=== PATIENT | male | born 1965 | race Caucasian/White ===

== ENCOUNTER → 2017-10-18 | Outpatient (CLI) | payer BC ==
[2017-10-18 11:00] LABS: HCT 41.1 % (39.0-53.0); HGB 13.3 gm/dL (13.0-17.5); Hypochromasia Slight; MCH 26.6 pg (25.0-35.0); MCHC 32.2 g/dL (31.0-37.0); MCV 82.5 fL (80.0-100.0); Mean Platelet Volume 7.7; Platelet Count 310 k/uL (150-450); RBC 4.98 m/uL (4.30-5.90); RDW 13.3 % (11.5-15.5)
[2017-10-18 11:14] LABS: ALT 61 U/L (21-72); AST 40 U/L (17-59); Albumin 4.2 g/dL (3.5-5.0); Alkaline Phosphatase 157 U/L (38-126); Anion Gap 13 mmol/L; Blood Urea Nitrogen 13 mg/dL (9-20); Calcium 10.4 mg/dL (8.4-10.2); Carbon Dioxide 28 mmol/L (22-30); Chloride 105 mmol/L (98-107); Glucose 69 mg/dL (74-99); Potassium 5.2 mmol/L (3.5-5.1); Sodium 146 mmol/L (137-145); Total Bilirubin 0.4 mg/dL (0.2-1.3); Total Protein 6.7 g/dL (6.3-8.2)
[2017-10-18 11:29] LABS: T4, Free (Free Thyroxine) 3.69 ng/dL (0.78-2.19)
== END ==
LOC: LABWHC1 10:06
PROVIDERS: ATTEND Internal Medicine Endocrinology, Diabetes & Metabolism
DX: E05.90 Thyrotoxicosis, unspecified without thyrotoxic crisis or storm (principal)
CPT/HCPCS: 36415; 80053; 84439; 84443; 84445; 84480; 85027

== ENCOUNTER → 2017-12-27 | Outpatient (CLI) | payer BC ==
[2017-12-27 12:00] LABS: T4, Free (Free Thyroxine) 2.92 ng/dL (0.78-2.19)
== END | disposition home or self-care (01) ==
LOC: LABWHC1 10:46
PROVIDERS: ATTEND Internal Medicine Endocrinology, Diabetes & Metabolism
DX: E10.65 Type 1 diabetes mellitus with hyperglycemia (principal); E05.20 Thyrotoxicosis with toxic multinodular goiter without thyrotoxic crisis or storm
CPT/HCPCS: 36415; 84439; 84443; 84480

== ENCOUNTER → 2018-04-12 | Outpatient (CLI) | payer BC ==
[2018-04-13 02:36] LABS: Anion Gap 9.9 mmol/L (4.00-12.00); Calcium 9.6 mg/dL (8.7-10.3); Carbon Dioxide 29.1 mmol/L (21.6-31.8); Potassium 4.8 mmol/L (3.5-5.5)
== END | disposition home or self-care (01) ==
LOC: LABWHC1 15:42
PROVIDERS: ATTEND Anesthesiology
DX: Z01.812 Encounter for preprocedural laboratory examination (principal)
CPT/HCPCS: 36415; 80048

== ENCOUNTER → 2018-04-20 | Outpatient (CLI) | payer BC ==
[2018-04-20 11:17] LABS: Calcium 9.7 mg/dL (8.4-10.2); Magnesium 1.8 mg/dL (1.6-2.3); Phosphorus 5.1 mg/dL (2.5-4.5)
== END | disposition home or self-care (01) ==
LOC: LABWHC1 10:11
PROVIDERS: ATTEND Otolaryngology Plastic Surgery within the Head & Neck
DX: E83.51 Hypocalcemia (principal)
CPT/HCPCS: 36415; 82310; 83735; 84100

== ENCOUNTER → 2018-04-24 | Outpatient (CLI) | payer BC ==
[2018-04-24 15:58] LABS: Calcium 9.6 mg/dL (8.4-10.2); Magnesium 1.9 mg/dL (1.6-2.3); Phosphorus 4.4 mg/dL (2.5-4.5)
== END ==
LOC: LABWHC1 14:49
PROVIDERS: ATTEND Otolaryngology Plastic Surgery within the Head & Neck
DX: E83.51 Hypocalcemia (principal)
CPT/HCPCS: 36415; 82310; 83735; 84100

== ENCOUNTER → 2018-05-02 | Outpatient (CLI) | payer BC ==
[2018-05-02 13:32] LABS: Calcium 10.2 mg/dL (8.4-10.2); Magnesium 2.2 mg/dL (1.6-2.3); Phosphorus 5.1 mg/dL (2.5-4.5)
== END | disposition home or self-care (01) ==
LOC: LABWHC1 12:08
PROVIDERS: ATTEND Otolaryngology Plastic Surgery within the Head & Neck
DX: E83.51 Hypocalcemia (principal)
CPT/HCPCS: 36415; 82310; 83735; 84100

== ENCOUNTER 2018-06-16 08:51 | Emergency (ER) | payer BC ==
--- NOTE | 2018-06-16 09:14 | ED ---
General Adult HPI - General Stated complaint: HYPOGLYCEMIA Time Seen by Provider: 06/16/18 08:55 Source: RN notes reviewed - History of Present Illness Initial comments: This is a 52-year-old male presents to the emergency department with a low blood sugar. Patient is a diabetic. Patient states ever since he had his thyroid removed in April he's been having issues controlling his sugar. Patient states he has woke up low on 3 occasions in the last 2 weeks. Patient was 16 this morning he was given D50 on the [address] in and he ate some food. Patient states he has been feeling fine he said no symptoms prior to being low. Patient denies any chest pain difficult breathing shortness of breath per patient denies any recent fever chills or cough per patient denies abdominal pain patient denies nausea vomiting diarrhea. - Related Data Home Medications Medication Instructions Recorded Confirmed INSULIN LISPRO (For Pump) [humaLOG See Protocol SQ-PUMP CONTINUOUS 06/16/1805/23 (For Pump)] Allergies Allergy/AdvReac Type Severity Reaction Status Date / Time No Known Allergies Allergy Verified 06/16/18 09:19 Review of Systems ROS Statement: Those systems with pertinent positive or pertinent negative responses have been documented in the HPI. ROS Other: All systems not noted in ROS Statement are negative. General Exam - General Exam Comments Initial Comments: GENERAL: Patient is well-developed and well-nourished. Patient is nontoxic and well- hydrated and is in no acute distress. ENT: Neck is soft and supple. No significant lymphadenopathy is noted. Oropharynx is clear. Moist mucous membranes. Neck has full range of motion without eliciting any pain. EYES: The sclera were anicteric and conjunctiva were pink and moist. Extraocular movements were intact and pupils were equal round and reactive to light. Eyelids were unremarkable. PULMONARY: Unlabored respirations. Good breath sounds bilaterally. No audible rales rhonchi or wheezing was noted. CARDIOVASCULAR: There is a regular rate and rhythm without any murmurs gallops or rubs. ABDOMEN: Soft and nontender with normal bowel sounds. No palpable organomegaly was noted. There is no palpable pulsatile mass. SKIN: Skin is clear with no lesions or rashes and otherwise unremarkable. NEUROLOGIC: Patient is alert and oriented x3. Cranial nerves II through XII are grossly intact. Motor and sensory are also intact. Normal speech, volume and content. Symmetrical smile. MUSCULOSKELETAL: Normal extremities with adequate strength and full range of motion. LYMPHATICS: No significant lymphadenopathy is noted PSYCHIATRIC: Normal psychiatric evaluation. Course Vital Signs 06/16/18 09:05 Temperature 97.5 F L Pulse Rate 85 Respiratory 18 Rate Blood Pressure 172/83 O2 Sat by Pulse 97 Oximetry Medical Decision Making - Medical Decision Making Patient is asymptomatic throughout his emergency department stay. Patient ate some food in the emergency department and his sugar was 1:15 at this time. - Lab Data Result diagrams: 06/16/18 09:00 06/16/18 09:00 Lab Results 06/16/18 06/16/18 Range/Units 09:00 09:00 WBC 17.7 H (3.8-10.6) k/uL RBC 5.53 (4.30-5.90) m/uL Hgb 15.8 (13.0-17.5) gm/dL Hct 49.1 (39.0-53.0) % MCV 88.7 (80.0-100.0) fL MCH 28.6 (25.0-35.0) pg MCHC 32.2 (31.0-37.0) g/dL RDW 15.4 (11.5-15.5) % Plt Count 340 (150-450) k/uL Neutrophils % 64 % Lymphocytes % 25 % Monocytes % 5 % Eosinophils % 4 % Basophils % 1 % Neutrophils # 11.3 H (1.3-7.7) k/uL Lymphocytes # 4.5 (1.0-4.8) k/uL Monocytes # 0.8 (0-1.0) k/uL Eosinophils # 0.7 (0-0.7) k/uL Basophils # 0.1 (0-0.2) k/uL Sodium 147 H (137-145) mmol/L Potassium 4.6 (3.5-5.1) mmol/L Chloride 108 H (98-107) mmol/L Carbon Dioxide 27 (22-30) mmol/L Anion Gap 12 mmol/L BUN 16 (9-20) mg/dL Creatinine 0.97 (0.66-1.25) mg/dL Est GFR (CKD-EPI)AfAm >90 (>60 ml/min/1.73 sqM) Est GFR (CKD-EPI)NonAf >90 (>60 ml/min/1.73 sqM) Glucose 44 L* (74-99) mg/dL Calcium 9.4 (8.4-10.2) mg/dL Total Bilirubin 0.7 (0.2-1.3) mg/dL AST 42 (17-59) U/L ALT 22 (21-72) U/L Alkaline Phosphatase 151 H (38-126) U/L Total Protein 8.4 H (6.3-8.2) g/dL Albumin 5.1 H (3.5-5.0) g/dL Disposition Clinical Impression: Hypoglycemia Disposition: HOME SELF-CARE Condition: Good Instructions: Hypoglycemia in a Person with Diabetes (ED) Additional Instructions: Patient will go home and not use the insulin pump at this point time will go back to giving himself injections of insulin per sliding scale that he is using the past. Patient will follow-up with his clinical specialist on Monday. Patient states he does have someone at his home to look after him over the weekend. Is patient prescribed a controlled substance at d/c from ED?: No Referrals: Brandin Hills DO [Primary Care Provider] - 1-2 days Time of Disposition: 10:22
[2018-06-16 09:19] VITALS: PULSE 85; RESP 18; TEMP 97.5
[2018-06-16 09:35] LABS: Basophils # (A) 0.1 k/uL (0-0.2); Basophils % (A) 1 %; Eosinophils # (A) 0.7 k/uL (0-0.7); Eosinophils % (A) 4 %; HCT 49.1 % (39.0-53.0); HGB 15.8 gm/dL (13.0-17.5); Lymphocytes # (A) 4.5 k/uL (1.0-4.8); Lymphocytes % (A) 25 %; MCH 28.6 pg (25.0-35.0); MCHC 32.2 g/dL (31.0-37.0); MCV 88.7 fL (80.0-100.0); Mean Platelet Volume 7.5; Monocytes # (A) 0.8 k/uL (0-1.0); Monocytes % (A) 5 %; Neutrophils # (A) 11.3 k/uL (1.3-7.7); Neutrophils % (A) 64 %; Platelet Count 340 k/uL (150-450); RBC 5.53 m/uL (4.30-5.90); RDW 15.4 % (11.5-15.5); WBC 17.7 k/uL (3.8-10.6)
[2018-06-16 09:48] LABS: ALT 22 U/L (21-72); AST 42 U/L (17-59); Albumin 5.1 g/dL (3.5-5.0); Alkaline Phosphatase 151 U/L (38-126); Anion Gap 12 mmol/L; Blood Urea Nitrogen 16 mg/dL (9-20); Calcium 9.4 mg/dL (8.4-10.2); Carbon Dioxide 27 mmol/L (22-30); Chloride 108 mmol/L (98-107); Potassium 4.6 mmol/L (3.5-5.1); Sodium 147 mmol/L (137-145); Total Bilirubin 0.7 mg/dL (0.2-1.3); Total Protein 8.4 g/dL (6.3-8.2)
[2018-06-16 10:01] LABS: Glucose 44 mg/dL (74-99)
[2018-06-16 10:32] VITALS: BP 123/71
[2018-06-16 23:42] LABS: Glucose,Whole Blood 58 mg/dL (75-99)
[2018-06-16 23:42] LABS: Glucose,Whole Blood 115 mg/dL (75-99)
== END 2018-06-16 10:31 | disposition home or self-care (01) ==
LOC: EC 08:51
DX: E11.649 Type 2 diabetes mellitus with hypoglycemia without coma (principal); E89.0 Postprocedural hypothyroidism; Z79.4 Long term (current) use of insulin; Z96.41 Presence of insulin pump (external) (internal)
CPT/HCPCS: 36415; 80053; 85025; 99284

== ENCOUNTER → 2019-06-24 | Outpatient (CLI) | payer BC ==
[2019-06-25 01:42] LABS: African American GFR (CKD) 73.2 (60.0-200.0); Anion Gap 7.5 mmol/L (4.00-12.00); BUN/Creat Ratio 17.69 Ratio (12.00-20.00); Calcium 9.4 mg/dL (8.7-10.3); Carbon Dioxide 27.5 mmol/L (21.6-31.8); Chol/HDL Ratio 3.46; LDL Cholesterol,Calculated 79.4 mg/dL (0.0-131.0); Non-African American GFR(CKD) 63.2 (60.0-200.0); VLDL Calculation 43.6 mg/dL (5.00-40.00)
[2019-06-25 01:51] LABS: T4, Free (Free Thyroxine) 1.2 ng/dL (0.80-1.80)
[2019-06-25 01:56] LABS: Hemoglobin A1C 8.2 % (4.0-6.0)
[2019-06-25 01:59] LABS: Creatinine,Urine Random 57.9 mg/dL
[2019-06-25 02:00] LABS: Total Protein,Urine Random 4.1 mg/dL (0.0-13.5)
== END | disposition home or self-care (01) ==
LOC: LABWHC1 17:16
PROVIDERS: ATTEND Internal Medicine
DX: E03.9 Hypothyroidism, unspecified (principal); E10.65 Type 1 diabetes mellitus with hyperglycemia
CPT/HCPCS: 36415; 80048; 80061; 82570; 83036; 84156; 84439; 84443

== ENCOUNTER 2022-09-05 11:49 | Day surgery (SDC) | payer BC ==
[2022-09-05 12:17] VITALS: TEMP 98
[2022-09-05] MEDS ORDERED: LACTATED RINGERS 1,000 ML IV SCH (12:17)
[2022-09-05 12:21] LABS: Glucose,Whole Blood 58 mg/dL (70-110)
[2022-09-05] MEDS ORDERED: DEXTROSE 50% SYRINGE 50 ML IVP ONE (12:21)
[2022-09-05 12:41] LABS: Glucose,Whole Blood 109 mg/dL (70-110)
[2022-09-05 13:24] LABS: Glucose,Whole Blood 96 mg/dL (70-110)
[2022-09-05] MEDS ORDERED: PROPOFOL 10 MG/ML 20 ML VIAL IV ONE (13:44)
--- NOTE | 2022-09-05 13:46 | P.GSHP ---
History of Present Illness H&P Date: 09/05/22 Chief Complaint: Screening colonoscopy This a 57-year-old male presents today for screening colonoscopy. Patient denies any significant GI complaints. Past Medical History Past Medical History: Diabetes Mellitus, Hyperlipidemia, Hypertension, Thyroid Disorder Additional Past Medical History / Comment(s): ,? arthritis in knee, 1st colon screen History of Any Multi-Drug Resistant Organisms: None Reported Additional Past Surgical History / Comment(s): Thyroid removal May 18 2018 Past Anesthesia/Blood Transfusion Reactions: No Reported Reaction Smoking Status: Current every day smoker - Past Family History Father Family Medical History: No Reported History Medications and Allergies Home Medications Medication Instructions Recorded Confirmed Type INSULIN LISPRO (For Pump) [humaLOG See Protocol SQ-PUMP CONTINUOUS 06/16/18 09/01/22 History (For Pump)] Levothyroxine Sodium [Levo-T] 175 mcg PO DAILY 09/01/22 09/01/22 History Rosuvastatin [Crestor] 10 mg PO PC-LUNCH 09/01/22 09/01/22 History amLODIPine [Norvasc] 10 mg PO PC-LUNCH 09/01/22 09/01/22 History lisinopriL [Zestril] 10 mg PO PC-LUNCH 09/01/22 09/01/22 History Allergies Allergy/AdvReac Type Severity Reaction Status Date / Time No Known Allergies Allergy Verified 09/01/22 10:51 Surgical - Exam Vital Signs Temp Pulse Resp BP Pulse Ox 98 F 71 20 138/70 100 09/05/22 12:16 09/05/22 12:16 09/05/22 12:16 09/05/22 12:16 09/05/22 12:16 - General well developed, well nourished, no distress - Eyes PERRL - ENT normal pinna - Neck no masses - Respiratory normal expansion - Cardiovascular Rhythm: regular - Abdomen Abdomen: soft, non tender Results - Labs Abnormal Lab Results - Last 24 Hours (Table) 09/05/22 Range/Units 12:19 POC Glucose (mg/dL) 58 L (70-110) mg/dL Assessment and Plan Assessment: We'll perform screening colonoscopy
--- NOTE | 2022-09-05 13:55 | P.OP ---
Date of Procedure: 09/05/22 Preoperative Diagnosis: Screening colonoscopy Postoperative Diagnosis: Normal colonoscopy Procedure(s) Performed: Colonoscopy Anesthesia: MAC Surgeon: Andrews Vasquez Pathology: none sent Condition: stable Disposition: PACU Description of Procedure: PROCEDURE: The patient was placed on the endoscopy table in the lateral position. Digital rectal examination was performed which revealed no abnormalities. The prostate was symmetrical without nodules. Flexible colonoscope was then placed in the patient's anus and passed throughout the entire colon. The ileocecal valve was visualized. The cecum, ascending, transverse, descending and sigmoid colon were normal. The rectum was normal as well. There were no masses, polyps or diverticula noted in the entire colon. SUMMARY OF FINDINGS: Normal colonoscopy.
[2022-09-05 13:59] VITALS: RESP 16
[2022-09-05 14:06] LABS: Glucose,Whole Blood 103 mg/dL (70-110)
[2022-09-05 14:18] VITALS: BP 134/78; PULSE 67
== END 2022-09-05 14:31 | disposition home or self-care (01) ==
LOC: ORWHC2ENDO 11:49
PROVIDERS: ATTEND Surgery
DX: Z12.11 Encounter for screening for malignant neoplasm of colon (principal); E11.9 Type 2 diabetes mellitus without complications; I10 Essential (primary) hypertension; E78.5 Hyperlipidemia, unspecified; E07.9 Disorder of thyroid, unspecified; F17.200 Nicotine dependence, unspecified, uncomplicated; Z79.4 Long term (current) use of insulin; Z79.899 Other long term (current) drug therapy
CPT/HCPCS: 45378; J2704

== ENCOUNTER 2023-02-20 18:51 | Emergency (ER) | payer BC ==
[2023-02-20 18:56] LABS: Glucose,Whole Blood 34 mg/dL (70-110)
[2023-02-20] MEDS ORDERED: DEXTROSE 50% SYRINGE 50 ML IVP STA (19:00)
[2023-02-20] MEDS ORDERED: SODIUM CHLORIDE 0.9% 1,000 ML IV ONE (19:10)
[2023-02-20 19:31] LABS: Glucose,Whole Blood 154 mg/dL (70-110)
--- NOTE | 2023-02-20 19:37 | ED ---
Altered Mental Status HPI - General Chief Complaint: Altered Mental Status Stated Complaint: Low Sugar Time Seen by Provider: 02/20/23 18:59 Source: patient, family, RN notes reviewed Mode of arrival: wheelchair Limitations: no limitations - History of Present Illness Initial Comments: This is a 57-year-old male who presents to the emergency department for hypoglycemia. Patient changed his insulin pump site today, and noticed that when he was golfing, his blood sugar had dropped substantially. States that he initially thought that his insulin pump was not working, as his sugar had been elevated, in the 250 range. His sugar is typically around 120. He subsequently began to give himself multiple boluses of insulin, and it all of a sudden began to drop substantially. He called his who brought him juice and snacks, which is usually effective. However, this time his sugar did not come up. He does note substantial scar tissue to his abdomen due to a long-standing history of diabetes and having to change his pump site frequently. Believes that he may have chosen a poor spot, causing this problem. He feels very cold and clammy. He has only been using NovoLOG. Denies any fevers, chills, sore throat, cough, dyspnea, chest pain, palpitations, abdominal pain, nausea, vomiting, diarrhea, back pain, or headaches. MD Complaint: altered mental status - Related Data Home Medications Medication Instructions Recorded Confirmed INSULIN LISPRO (For Pump) [humaLOG See Protocol SQ-PUMP CONTINUOUS 06/16/18 09/01/22 (For Pump)] Levothyroxine Sodium [Levo-T] 175 mcg PO DAILY 09/01/22 09/01/22 Rosuvastatin [Crestor] 10 mg PO PC-LUNCH 09/01/22 09/01/22 amLODIPine [Norvasc] 10 mg PO PC-LUNCH 09/01/22 09/01/22 lisinopriL [Zestril] 10 mg PO PC-LUNCH 09/01/22 09/01/22 Allergies Allergy/AdvReac Type Severity Reaction Status Date / Time No Known Allergies Allergy Verified 09/01/22 10:51 Review of Systems ROS Statement: Those systems with pertinent positive or pertinent negative responses have been documented in the HPI. ROS Other: All systems not noted in ROS Statement are negative. Past Medical History Past Medical History: Diabetes Mellitus, Hyperlipidemia, Hypertension, Thyroid Disorder Additional Past Medical History / Comment(s): ,? arthritis in knee, 1st colon sc reen History of Any Multi-Drug Resistant Organisms: None Reported Additional Past Surgical History / Comment(s): Thyroid removal May 18 2018 Past Anesthesia/Blood Transfusion Reactions: No Reported Reaction Past Psychological History: No Psychological Hx Reported Smoking Status: Current every day smoker - Past Family History Father Family Medical History: No Reported History General Exam Limitations: no limitations General appearance: alert, other (clammy) Head exam: Present: atraumatic, normocephalic, normal inspection Eye exam: Present: normal appearance, PERRL, EOMI. Absent: scleral icterus, conjunctival injection, periorbital swelling Respiratory exam: Present: normal lung sounds bilaterally. Absent: respiratory distress, wheezes, rales, rhonchi, stridor Cardiovascular Exam: Present: regular rate, normal rhythm, normal heart sounds. Absent: systolic murmur, diastolic murmur, rubs, gallop, clicks Neurological exam: Present: alert, oriented X3, CN II-XII intact Psychiatric exam: Present: normal affect, normal mood Course Vital Signs 02/20/23 02/20/23 02/20/23 18:53 20:24 21:10 Temperature 96 F L 97.5 F L Pulse Rate 65 77 67 Respiratory 16 18 18 Rate Blood Pressure 138/61 109/56 113/68 O2 Sat by Pulse 97 98 97 Oximetry Medical Decision Making - Medical Decision Making This is a 57-year-old male who presents to the emergency department for hypoglycemia. Was pt. sent in by a medical professional or institution? @ -No Did you speak to anyone other than the patient for history? @ -No Did you review nursing and triage notes? @ -Yes, and I agree, it is accurate with regards to the patient's symptoms. Were old charts reviewed? @ -No Differential Diagnosis? @ -Differential Hypoglycemia: Insulin overdose, injection site, illness, this is not meant to be an all- inclusive list. EKG interpreted by me (3pts min.)? @ -Not obtained X-rays interpreted by me (1pt min.)? @ -Not obtained CT interpreted by me (1pt min.)? @ -Not obtained U/S interpreted by me (1pt. min.)? @ -Not obtained What testing was considered but not performed? (CT, X-rays, U/S, labs)? Why? @ -None What meds were considered but not given? Why? @ -None Did you discuss the management of the patient with other professionals? @ -No Did you reconcile home meds? @ -No Was smoking cessation discussed for >3mins.? @ -No Was critical care preformed (if so, how long)? @ -No Were there social determinants of health that impacted care today? How? (Homelessness, low income, unemployed, alcoholism, drug addiction, transportation, low edu. Level, literacy, decrease access to med. care, intermediate, rehab)? @ -No Was there de-escalation of care discussed even if they declined? (Discuss DNR or withdrawal of care, Hospice)? @ -No What co-morbidities impacted this encounter? (DM, HTN, Smoking, COPD, CAD, Cancer, CVA, Hep., AIDS, mental health diagnosis, sleep apnea, morbid obesity)? @ -DM, HLD, HTN Was patient admitted / discharged? @ -Discharged. Initial POC glucose was 34 on arrival. Lab work obtained revealing minor leukocytosis and glucose of 39. He was given an amp of dextrose. Recheck of sugar was 154. He was up and eating a sandwich and drinking juice. Recheck of sugar approximately one hour later was 168. Patient continued to feel markedly improved. He was monitored in the emergency department for a little over 2 hours. I offered to monitor the patient for slightly longer, however he said that he has had diabetes for a very long time and because his sugar has been stabilized and he feels much better, he requested discharge home. He was subsequently discharged home in stable condition and instructed to have close follow-up with his primary care provider. Undiagnosed new problem with uncertain prognosis? @ -None Drug Therapy requiring intensive monitoring for toxicity (Heparin, Nitro, Insulin, Cardizem)? @ -None Were any procedures done? @ -None Diagnosis/symptom? @ -Hypoglycemic event in diabetes Acute, or Chronic, or Acute on Chronic? @ -Acute Uncomplicated (without systemic symptoms) or Complicated (systemic symptoms)? @ -Complicated Side effects of treatment? @ -None Exacerbation, Progression, or Severe Exacerbation] @ -Not applicable Poses a threat to life or bodily function? @ -Not at this time, the event resolved. Return precautions reviewed in depth, the patient is instructed to return to the emergency department with any new, worsening, or concerning symptoms. Patient verbalized understanding. This case was discussed in detail with the attending ED physician, Dr. Ace. Presentation, findings, and treatment plan discussed in detail as well. - Lab Data Result diagrams: 02/20/23 19:20 02/20/23 19:20 Lab Results 02/20/23 02/20/23 02/20/23 Range/Units 18:54 19:20 19:20 WBC 12.7 H (3.8-10.6) k/uL RBC 5.00 (4.30-5.90) m/uL Hgb 14.5 (13.0-17.5) gm/dL Hct 44.9 (39.0-53.0) % MCV 89.8 (80.0-100.0) fL MCH 28.9 (25.0-35.0) pg MCHC 32.2 (31.0-37.0) g/dL RDW 14.0 (11.5-15.5) % Plt Count 323 (150-450) k/uL MPV 8.6 Neutrophils % 45 % Lymphocytes % 45 % Monocytes % 5 % Eosinophils % 2 % Basophils % 1 % Neutrophils # 5.8 (1.3-7.7) k/uL Lymphocytes # 5.7 H (1.0-4.8) k/uL Monocytes # 0.7 (0-1.0) k/uL Eosinophils # 0.2 (0-0.7) k/uL Basophils # 0.1 (0-0.2) k/uL Manual Slide Review Performed Sodium (137-145) mmol/L Potassium (3.5-5.1) mmol/L Chloride (98-107) mmol/L Carbon Dioxide (22-30) mmol/L Anion Gap mmol/L BUN (9-20) mg/dL Creatinine (0.66-1.25) mg/dL Est GFR (CKD-EPI)AfAm (>60 ml/min/1.73 sqM) Est GFR (CKD-EPI)NonAf (>60 ml/min/1.73 sqM) Glucose (74-99) mg/dL POC Glucose (mg/dL) 34 L (70-110) mg/dL POC Glu Seconds Grader ID EugeneRoyali Calcium (8.4-10.2) mg/dL Total Bilirubin (0.2-1.3) mg/dL AST (17-59) U/L ALT (4-49) U/L Alkaline Phosphatase (38-126) U/L Total Protein (6.3-8.2) g/dL Albumin (3.5-5.0) g/dL Urine Color Colorless Urine Appearance Clear (Clear) Urine pH 6.0 (5.0-8.0) Ur Specific [place] 1.007 (1.001-1.035) Urine Protein Negative (Negative) Urine Glucose (UA) 2+ H (Negative) Urine Ketones Negative (Negative) Urine Blood Negative (Negative) Urine Nitrite Negative (Negative) Urine Bilirubin Negative (Negative) Urine Urobilinogen <2.0 (<2.0) mg/dL Ur Leukocyte Esterase Negative (Negative) Urine Opiates Screen Not Detected (NotDetected) Ur Oxycodone Screen Not Detected (NotDetected) Urine Methadone Screen Not Detected (NotDetected) Ur Propoxyphene Screen Not Detected (NotDetected) Ur Barbiturates Screen Not Detected (NotDetected) U Tricyclic Antidepress Not Detected (NotDetected) Ur Phencyclidine Scrn Not Detected (NotDetected) Ur Amphetamines Screen Not Detected (NotDetected) U Methamphetamines Scrn Not Detected (NotDetected) U Benzodiazepines Scrn Not Detected (NotDetected) Urine Cocaine Screen Detected H (NotDetected) U Marijuana (THC) Screen Detected H (NotDetected) 02/20/23 02/20/23 02/20/23 Range/Units 19:20 19:25 20:28 WBC (3.8-10.6) k/uL RBC (4.30-5.90) m/uL Hgb (13.0-17.5) gm/dL Hct (39.0-53.0) % MCV (80.0-100.0) fL MCH (25.0-35.0) pg MCHC (31.0-37.0) g/dL RDW (11.5-15.5) % Plt Count (150-450) k/uL MPV Neutrophils % % Lymphocytes % % Monocytes % % Eosinophils % % Basophils % % Neutrophils # (1.3-7.7) k/uL Lymphocytes # (1.0-4.8) k/uL Monocytes # (0-1.0) k/uL Eosinophils # (0-0.7) k/uL Basophils # (0-0.2) k/uL Manual Slide Review Sodium 142 (137-145) mmol/L Potassium 3.7 (3.5-5.1) mmol/L Chloride 104 (98-107) mmol/L Carbon Dioxide 25 (22-30) mmol/L Anion Gap 13 mmol/L BUN 13 (9-20) mg/dL Creatinine 1.07 (0.66-1.25) mg/dL Est GFR (CKD-EPI)AfAm >90 (>60 ml/min/1.73 sqM) Est GFR (CKD-EPI)NonAf 78 (>60 ml/min/1.73 sqM) Glucose 39 L* (74-99) mg/dL POC Glucose (mg/dL) 154 H 168 H (70-110) mg/dL POC Glu Seconds Grader ID Carina, Jenny Carina, Jenny Calcium 10.1 (8.4-10.2) mg/dL Total Bilirubin 0.6 (0.2-1.3) mg/dL AST 27 (17-59) U/L ALT 25 (4-49) U/L Alkaline Phosphatase 69 (38-126) U/L Total Protein 8.6 H (6.3-8.2) g/dL Albumin 5.1 H (3.5-5.0) g/dL Urine Color Urine Appearance (Clear) Urine pH (5.0-8.0) Ur Specific [place] (1.001-1.035) Urine Protein (Negative) Urine Glucose (UA) (Negative) Urine Ketones (Negative) Urine Blood (Negative) Urine Nitrite (Negative) Urine Bilirubin (Negative) Urine Urobilinogen (<2.0) mg/dL Ur Leukocyte Esterase (Negative) Urine Opiates Screen (NotDetected) Ur Oxycodone Screen (NotDetected) Urine Methadone Screen (NotDetected) Ur Propoxyphene Screen (NotDetected) Ur Barbiturates Screen (NotDetected) U Tricyclic Antidepress (NotDetected) Ur Phencyclidine Scrn (NotDetected) Ur Amphetamines Screen (NotDetected) U Methamphetamines Scrn (NotDetected) U Benzodiazepines Scrn (NotDetected) Urine Cocaine Screen (NotDetected) U Marijuana (THC) Screen (NotDetected) Disposition Clinical Impression: Hypoglycemic event in diabetes Disposition: HOME SELF-CARE Instructions (If sedation given, give patient instructions): Hypoglycemia in a Person with Diabetes (ED) Additional Instructions: Return to the emergency department with any new, worsening, or concerning symptoms. Follow up with your primary care provider in 1-2 days. Is patient prescribed a controlled substance at d/c from ED?: No Referrals: Brandin Hills DO [Primary Care Provider] - 1-2 days
[2023-02-20 19:41] LABS: Basophils # (A) 0.1 k/uL (0-0.2); Basophils % (A) 1 %; Eosinophils # (A) 0.2 k/uL (0-0.7); Eosinophils % (A) 2 %; HCT 44.9 % (39.0-53.0); HGB 14.5 gm/dL (13.0-17.5); Lymphocytes # (A) 5.7 k/uL (1.0-4.8); Lymphocytes % (A) 45 %; MCH 28.9 pg (25.0-35.0); MCHC 32.2 g/dL (31.0-37.0); MCV 89.8 fL (80.0-100.0); Mean Platelet Volume 8.6; Monocytes # (A) 0.7 k/uL (0-1.0); Monocytes % (A) 5 %; Neutrophils # (A) 5.8 k/uL (1.3-7.7); Neutrophils % (A) 45 %; Platelet Count 323 k/uL (150-450); WBC 12.7 k/uL (3.8-10.6)
[2023-02-20 20:17] LABS: ALT 25 U/L (4-49); AST 27 U/L (17-59); African American GFR (CKD) >90 (>60 ml/min/1.73 sqM); Albumin 5.1 g/dL (3.5-5.0); Alkaline Phosphatase 69 U/L (38-126); Anion Gap 13 mmol/L; Appearance,Urine Clear (Clear); Bilirubin,Urine Negative (Negative); Blood Urea Nitrogen 13 mg/dL (9-20); Blood,Urine Negative (Negative); Calcium 10.1 mg/dL (8.4-10.2); Carbon Dioxide 25 mmol/L (22-30); Chloride 104 mmol/L (98-107); Color,Urine Colorless; Glucose,Urine (UA) 2+ (Negative); Ketones,Urine Negative (Negative); Leukocyte Esterase,Urine Negative (Negative); Nitrite,Urine Negative (Negative); Non-African American GFR(CKD) 78 (>60 ml/min/1.73 sqM); Potassium 3.7 mmol/L (3.5-5.1); Protein,Urine Negative (Negative); Sodium 142 mmol/L (137-145); Specific Gravity,Urine 1.007 (1.001-1.035); Total Bilirubin 0.6 mg/dL (0.2-1.3); Total Protein 8.6 g/dL (6.3-8.2); Urobilinogen,Urine <2.0 mg/dL (<2.0)
[2023-02-20 20:26] VITALS: RESP 18
[2023-02-20 20:31] LABS: Glucose 39 mg/dL (74-99)
[2023-02-20 20:39] LABS: Amphetamine Screen,Urine Not Detected (NotDetected); Barbiturate Screen,Urine Not Detected (NotDetected); Benzodiazepines Screen,Urine Not Detected (NotDetected); Cocaine Screen,Urine Detected (NotDetected); Methadone Screen, Urine Not Detected (NotDetected); Opiate Screen,Urine Not Detected (NotDetected); Oxycodone Screen, Urine Not Detected (NotDetected); Phencyclidine Screen,Urine Not Detected (NotDetected); Tricyclic Antidepressant,Urine Not Detected (NotDetected); Urn Cannabinoid Scrn Detected (NotDetected)
[2023-02-20 20:39] LABS: Glucose,Whole Blood 168 mg/dL (70-110)
[2023-02-20 21:15] VITALS: BP 113/68; PULSE 67; TEMP 97.5
== END 2023-02-20 21:16 | disposition home or self-care (01) ==
LOC: EC 18:51
DX: E11.649 Type 2 diabetes mellitus with hypoglycemia without coma (principal); E78.5 Hyperlipidemia, unspecified; I10 Essential (primary) hypertension; E07.9 Disorder of thyroid, unspecified; F17.200 Nicotine dependence, unspecified, uncomplicated; Z79.4 Long term (current) use of insulin; Z79.890 Hormone replacement therapy; Z79.899 Other long term (current) drug therapy
CPT/HCPCS: 36415; 80053; 80306; 81003; 85025; 96361; 96374; 99285

== ENCOUNTER → 2023-11-28 | Outpatient (CLI) | payer BC ==
[2023-11-28 14:58] LABS: African American GFR (CKD) >90 (>60 ml/min/1.73 sqM); Blood Urea Nitrogen 11 mg/dL (9-20); Non-African American GFR(CKD) 80 (>60 ml/min/1.73 sqM)
--- NOTE | 2023-11-28 15:29 | CT ---
EXAMINATION TYPE: CT soft tissue neck w con DATE OF EXAM: 11/28/2023 COMPARISON: None HISTORY: Left side neck mass x [address] DLP: 362.2 mGycm CONTRAST: CT scan of the neck is performed with IV Contrast, patient injected with 100 mL of Isovue 300. Contrast enhanced CT of the neck was performed from the skull base through the lung apices. AIRWAY: The supraglottic, glottic, and subglottic portions of the airway appear patent and free of mass. SALIVARY GLANDS: The submandibular and parotid glands are free of mass or inflammatory process. THYROID GLAND: No nodules or masses seen. LYMPH NODES: No adenopathy seen greater than 1cm. LUNG APICES: No nodule or mass is seen. OTHER: Well-circumscribed cystic mass adjacent to the left sternocleidomastoid measuring 3.3 x 3.3 c m with internal septation. 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 Vascular struct ures are patent. No significant degenerative change of the cervical spine. No abscess seen. IMPRESSION: Well-circumscribed cystic mass adjacent to the left sternocleidomastoid measuring 3.3 x 3.3 cm with i nternal septation. 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
== END | disposition home or self-care (01) ==
LOC: RADCTMAIN 14:12
PROVIDERS: ATTEND Family Medicine
DX: R22.1 Localized swelling, mass and lump, neck (principal)
CPT/HCPCS: 82565; 84520; 70491; 36415; Q9967